=== PATIENT | male | born 1950 | race African-American/Black ===

== ENCOUNTER 2021-01-23 07:19 | Day surgery (SDC) | payer OTHER ==
[2021-01-17 12:36] LABS: BASOPHILS % (AUTO) 0.7 % (0.0-5.0); EOSINOPHILS % (AUTO) 3.1 % (0.0-8.0); HEMATOCRIT 38.4 % (42-54); MEAN CORPUSCULAR HEMOGLOBIN 29.4 pg (27.0-33.0); MEAN CORPUSCULAR VOLUME 91.6 fL (79-99); MONOCYTES % (AUTO) 11.6 % (3.0-13.0); NEUTROPHILS % (AUTO) 54.4 % (40.0-77.0); PLATELET COUNT (AUTO) 207 K/uL (130-400); RED BLOOD CELL COUNT(AUTO) 4.19 MIL/uL (4.50-6.20); RED CELL DISTRIBUTION WIDTH 13.3 % (11.0-15.5); WHITE BLOOD COUNT (AUTO) 5.5 K/uL (4.8-10.8)
[2021-01-17 12:38] LABS: APPEARANCE,URINE Clear (CLEAR); BILIRUBIN,URINE Negative (NEGATIVE); COLOR,URINE Yellow (YELLOW); GLUCOSE, URINE (UA) Negative (NEGATIVE); KETONES,URINE Negative (NEGATIVE); LEUKOCYTE ESTERASE ,URINE Negative (NEGATIVE); NITRATE,URINE Negative (NEGATIVE); OCCULT BLOOD,URINE Trace (NEGATIVE); PROTEIN,URINE 300 mg/dL (NEGATIVE); UROBILINOGEN,URINE 0.2 mg/dL (0.2-1.0)
[2021-01-17 12:48] LABS: CREATININE 0.9 mg/dL (0.5-1.5); POTASSIUM 4.9 mmol/L (3.5-5.1)
[2021-01-17 12:49] LABS: INR 1.03 (0.85-1.15); PROTHROMBIN TIME 11.2 SEC (9.6-11.6)
[2021-01-17 12:50] LABS: PARTIAL THROMBOPLASTIN TIME 26.2 SEC (26.3-35.5)
[2021-01-17 13:00] LABS: BACTERIA,URINE Few /HPF (None Seen)
[2021-01-17 13:01] LABS: SQUAMOUS EPITHELIAL CELL,UR Few /HPF (0-2)
[2021-01-22 08:53] VITALS: BP 166/90
[~2021-01-23] VITALS: Ht 175.3 cm; Wt 96.2 kg
[2021-01-23] VITALS (20 sets, daily range): BP systolic 123–171; BP diastolic 71–98
[~2021-01-23 07:19] MED LIST: ATOR10TA69 PO; ESOM40CA54 PO; GENTAMICIN SULFATE 0 MG in 0.9%NACL 100ML 100 ML IV SCH; HYDR-4068 PO; OXYC20TA41 PO; PSYL660P17 PO
[2021-01-23] MEDS ORDERED: LACTATED RINGERS 1000ML 1,000 ML IV ONE (08:08)
[2021-01-23] MEDS ORDERED: GENTAMICIN SULFATE 320 MG in 0.9%NACL 100ML 100 ML IV SCH (08:30)
[2021-01-23] MEDS: CEFTRIAXONE 1G VIAL IVP SCH ×2 (08:49→08:55)
[2021-01-23] MEDS ORDERED: PROPOFOL 10 MG/ML 20ML VIAL IV ONE (08:55)
[2021-01-23] MEDS ORDERED: LIDOCAINE PF 100MG/5ML (2%) SYRINGE 5ML ONE (08:55)
[2021-01-23] MEDS ORDERED: FENTANYL CITRATE PF 50 MCG/1 ML 2ML VIAL ONE ×2 (09:11→09:39)
[2021-01-23] MEDS ORDERED: ONDANSETRON 4MG INJ ONE (10:42)
[2021-01-23] MEDS ORDERED: MEPERIDINE-PF 25 MG/ML SYG ONE (12:01)
[2021-01-23] MEDS ORDERED: BACITRACIN 28.4 GM OINT TP ONE (12:40)
== END 2021-01-23 13:25 | disposition home or self-care (01) ==
LOC: DAH 07:19
PROVIDERS: ATTEND Urology
DX: N40.1 Benign prostatic hyperplasia with lower urinary tract symptoms (principal); Z20.822 Contact with and (suspected) exposure to COVID-19; R35.0 Frequency of micturition; R39.14 Feeling of incomplete bladder emptying; E78.5 Hyperlipidemia, unspecified; K21.9 Gastro-esophageal reflux disease without esophagitis; M19.90 Unspecified osteoarthritis, unspecified site; Z79.01 Long term (current) use of anticoagulants; Z88.0 Allergy status to penicillin; Z79.899 Other long term (current) drug therapy
CPT/HCPCS: 36415; 52648; 71045; 80048; 81001; 85025; 85610; 85730; 87088; 87635; 93005; A4215; A4221; A4222; A4223 ×2; A4354; A4358 ×2; A4600; A4663; A6260; C1758; C1769; C9803; J0696; J1580; J2001; J2175; J2405; J2704; J3010 ×2; J7120 ×2